=== PATIENT | female | born 2005 | race Caucasian/White ===

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

== ENCOUNTER 2024-07-17 14:27 | Emergency (ER) | payer BC, SELFPAY ==
--- OUTSIDE RECORDS SUMMARY | 2024-07-17 14:32 | XMS_ITS | Encounter Summary ---
Author Organization [facility] Address [address] [place] [address] Care Team Providers Care Comic Artist Name Role Phone Faye Weir MD Unavailable [phone] Kaylie Villanueva MD Primary Care Provider [phone] Faye Weir MD Primary Care Provider [phone] Cordell Paz DO Primary Care Provider Encounter Details Date Type Department Care Team (Late st Contact Info) Description 01/24/2013 [facility] Outpatient Visit [facility] DEFAULT [address] [place] [address] Unknown, Provider Social History Tobacco Use Types Packs/Day Years Used Date Smoking Tobacco: Never Assessed Sex and Gender Information Value Date Recorded Sex Assigned at Not on file Gender Identity Not on file Sexual Orientation Not on file documented as of this encounter Plan of Treatment Not on file documented as of this encounter Visit Diagnoses Not on filedocumented in this encounter Care Teams Comic Artist Relationship Specialty Start Date End Date Faye Weir MD PCP - Pediatrics 04/08/09 Kaylie Villanueva MD [phone] [place] [id number] PCP - General 05/15/10 09/08/13 Faye Weir MD PCP - General Pediatrics 09/09/13 06/21/20 Cordell Paz DO [address] [place] [id number] PCP - General Pediatrics 06/22/20 documented as of this encounter
--- OUTSIDE RECORDS SUMMARY | 2024-07-17 14:32 | XMS_ITS | Encounter Summary ---
Author Organization [facility] Address [address] [place] [address] Care Team Providers Care Equal Opportunity Officer Name Role Phone Faye Weir MD Unavailable [phone] Faye Weir MD Primary Care Provider [phone] Cordell Paz DO Primary Care Provider Encounter Details Date Type Department Care Team (Late st Contact Info) Description 12/12/2015 [facility] Outpatient Visit [facility] - Pediatrics [address] [place] [phone] Faye Weir MD [address] [place] [phone] Social History Tobacco Use Types Packs/Day Years Used Date Smoking Tobacco: Never Sex and Gender Information Value Date Recorded Sex Assigned at Not on file Gender Identity Not on file Sexual Orientation Not on file documented as of this encounter Plan of Treatment Not on file documented as of this encounter Visit Diagnoses Not on filedocumented in this encounter Care Teams Equal Opportunity Officer Relationship Specialty Start Date End Date Faye Weir MD PCP - Pediatrics 04/08/09 Faye Weir MD PCP - General Pediatrics 09/09/13 06/21/20 Cordell Paz DO PCP - General Pediatrics 06/22/20 documented as of this encounter
--- OUTSIDE RECORDS SUMMARY | 2024-07-17 14:32 | XMS_ITS | Referral Summary ---
Author Organization [facility] Address [address] [place] [address] Care Team Providers Care Wastewater Manager Name Role Phone Faye Weir MD Unavailable Cordell Paz DO Primary Care Provider Source Comments [facility],non-owned Affiliates and Associated Physician Practices is amultiple site organization consisting of ambulatory clinics and hospital sitesin [place], [place], [place] and [place]. This disclosure is being madepursuant to the Care Everywhere program and may not contain all information available regarding this patient. Last updated 18.[facility] Allergies No known active allergies Medications * Be aware that medications may not be up to date on this document. Alwaysverify current medications with the patient. Medication Sig Dispensed Refills Start Date End Date Status Spacer/Aero-Holdin g Chambers (AEROCHAMBER) Inhale by mouth as directed 1 Each 02/10/2018 Active Additional Information Patient not taking.Reported on 12/14/2020 clindamycin-benzoy l peroxide (BENZACLIN) 1-5 % gel Apply to affected area 2 times daily After washing face 50 g 1 04/13/2019 Active Additional Information Patient not taking.Reported on 12/14/2020 tretinoin (RETIN-A) 0.01 % gel Apply to affected area at bedtime 45 g 1 04/13/2019 Active Additional Information Patient not taking.Reported on 12/14/2020 albuterol HFA (PROVENTIL;VENTOLI N;PROAIR) 108 (90 Base) MCG/ACT inhaler INHALE 2 (TWO) PUFFS BY MOUTH EVERY 4 HOURS NEEDED FOR WHEEZING OR COUGH 1 Inhaler 07/21/2020 Active Additional Information Patient not taking.Reported on 12/14/2020 adapalene (DIFFERIN) 0.1 % cream Apply to affected area at bedtime 45 g 2 12/14/2020 Active bisacodyl EC (DULCOLAX) 5 MG tablet Take 1 (one) tablet by mouth nightly as needed for Constipation 10 tablet 01/11/2021 Active polyethylene glycol 3350 (MIRALAX) 17 GM/SCOOP powder 1 capful dissolved in 4-8 oz water or juice BID for 3 days and then a capful a day. 527 g 01/11/2021 Active JUNEL FE 06/14 1-20 MG-MCG tablet 03/23/2021 Active naproxen (NAPROSYN) 500 MG tablet Take every 12 hours for 14 days, then up to every 12 hours as needed for migraine 40 tablet 3 03/27/2021 Active ondansetron, disintegrating, (ZOFRAN ODT) 4 MG tablet Take 1 (one) tablet by mouth every 8 hours as needed for Nausea/Vomiting Allow tablet to dissolve on the tongue 20 tablet 3 03/27/2021 Active venlafaxine XR 24hr (EFFEXOR XR) 37.5 MG capsule Take one pill each morning for 1-2 weeks, then increase to two pills each morning 60 capsule 3 03/27/2021 Active Active Problems Problem Noted Date Diagnosed Date Asthma, intermittent 03/31/2012 Strabismic amblyopia 05/15/2010 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 05/15/2010 Resolved Problems Problem Noted Date Diagnosed Date Resolved Date Other closed fractures of di stal end of radius (alone) 09/15/2013 12/29/2018 Family history of other eye disorders 05/15/2010 03/31/2012 Immunizations Name Administration Dates Next Due Open-Plug primary monoval ent 12+ yr 0.3mL Purple cap 11/15/2020 DTAP/IPV 02/05/2010 DTaP VACCINE IM (6wk-6yrs) 10/07/2005,,2004,06/01 HEP A PEDS 2 DOSE 06/22/2020,12/29/2018 HEP B VACCINE, PED/ADOL 03/08/2005,09/14,2004,04/04 HIB BOOSTER 10/07/2005, 5,2004,06/01 Human Papilloma Virus Nineva lent Vaccine 12/14/2020,04/13/2019,12/29/2018 INFLUENZA VACCINE 08/01/2005 MENINGOCOCCAL CONJUGATE (MCV4P) 06/22/2020,12/25 MMR 02/05/2010,07/27/2005 PNEUMOCOCCAL CONJ, PEDS 08/01/2005,03/08,2004,06/01 POLIO IPV 03/08/2005,2004,2004 PPD 08/01/2005 TDAP (7yrs+) 12/26/2015 VARICELLA 02/05/2010,10/07/2005 Social History Tobacco Use Types Packs/Day Years Used Date Smoking Tobacco: Passive Smo ke Exposure - Never Smoker Smokeless Tobacco: Never PHQ-2 Answer Date Recorded PHQ2 TOTAL SCORE 2 12/14/2020 Sex and Gender Information Value Date Recorded Sex Assigned at Not on file Gender Identity Not on file Sexual Orientation Not on file Last Filed Vital Signs Vital Sign Reading Time Taken Comments Blood Pressure 110/70 03/27/2021 1:22 PM CDT Pulse 102 12/14/2020 10:55 AM CDT Temperature 36.6 C (97.8 F) 03/27/2021 11:07 AM CDT Respiratory Rate 15 09/09/2013 8:54 PM CDT Oxygen Saturation 100% 09/09/2013 8:53 PM CDT Inhaled Oxygen Concentration - - Weight 49.8 kg (109 lb 12.6 oz) 03/27/2021 1:22 PM CDT Height 157.9 cm (5' 2.17 ) 03/27/2021 1:22 PM CD T Body Mass Index 19.97 03/27/2021 1:22 PM CDT Plan of Treatment Not on file Goals Goal Patient Goal Type Associated Problems Recent Progress Patient-Stated? Author Use safety retraint in car Lifestyle On track( 021 10:57 AM CDT) No Millicent Johnson, DARLENE Care Teams Wastewater Manager Relationship Specialty Start Date End Date Faye Weir MD PCP - Pediatrics 04/08/09 Cordell Paz DO PCP - General Pediatrics 06/22/20
--- OUTSIDE RECORDS SUMMARY | 2024-07-17 14:32 | XMS_ITS | Clinical Summary ---
Author Organization [facility] Address [address] [place] [address] Care Team Providers Care Upholstery Mechanic Name Role Phone Faye Weir MD Unavailable [phone] Cordell Paz DO Primary Care Provider Source Comments [facility],non-owned Affiliates and Associated Physician Practices is amultiple site organization consisting of ambulatory clinics and hospital sitesin [place], [place], [place] and [place]. This disclosure is being madepursuant to the Care Everywhere program and may not contain all information available regarding this patient. Last updated 18.[facility] [employer] Allergies No known active allergies Medications * [...] 03/31/2012 Immunizations Name Administration Dates Next Due Babytree primary monoval ent 12+ yr 0.3mL Purple cap 11/15/2020 DTAP/IPV 02/05/2010 DTaP VACCINE IM (6wk-6yrs) 10/07/2005,,2004,06/01 HEP A PEDS 2 DOSE 06/22/2020,12/29/2018 HEP B VACCINE, PED/ADOL 03/08/2005,09/14,2004,04/04 HIB BOOSTER 10/07/2005, 5,2004,06/01 Human Papilloma Virus Nineva lent Vaccine 12/14/2020,04/13/2019,12/29/2018 INFLUENZA VACCINE 08/01/2005 MENINGOCOCCAL CONJUGATE (MCV4P) 06/22/2020,12/25 MMR 02/05/2010,07/27/2005 PNEUMOCOCCAL CONJ, PEDS 08/01/2005,03/08,2004,06/01 POLIO IPV 03/08/2005,2004,2004 PPD 08/01/2005 TDAP (7yrs+) 12/26/2015 VARICELLA 02/05/2010,10/07/2005 Family History Medical History Relation Name Comments Strabismus Sister Maeve Half-sister. Gl asses for ET Amblyopia Neg Hx Relation Name Status Comments Sister Maeve Social History Tobacco Use Types Packs/Day Years [...] 03/27/2021 1:22 PM CDT Plan of Treatment Health Maintenance Due Date Last Done Comments PNEUMOCOCCAL VACCINE (1 of 1 - PPSV23) 2010 08/01/2005, 03/08/2005, 2004, Additional history exists HIV SCREENING 2019 CHLAMYDIA/GONORRHEA SCREENING 2020 MENINGOCOCCAL (Group B) VACC INE (1 of 2 - Standard) 2020 HEPATITIS C SCREENING 03/24/2022 COVID-19 VACCINE (2 - 2023-2 5 season) 2024 11/15/2020 INFLUENZA VACCINE (#1) 2024 08/01/2005 DEPRESSION SCREENING 05/26/2024 DTAP/TDAP/TD VACCINES (7 - T d or Tdap) 12/25/2025 12/26/2015, 02/05/2010, 10/07/2005, Additional history exists ZOSTER VACCINE (1 of 2) 2054 HEPATITIS B VACCINE Completed 03/08/2005, 2004, 2004, Additional history exists HIB VACCINE Completed 10/07/2005, 02/23, 2004, Additional history exists MENINGOCOCCAL VACCINE Completed 06/22/2020, 016 HPV VACCINE Completed 12/14/2020, 03/26, 12/29/2018 Goals Goal Patient Goal Type Associated Problems Recent Progress Patient-Stated? Author Use safety retraint in car Lifestyle On track( 021 10:57 AM CDT) Millicent Lujan RN Care Teams Upholstery Mechanic Relationship Specialty Start Date End Date Faye Weir MD PCP - Pediatrics 04/08/09 Cordell Paz DO PCP - General Pediatrics 06/22/20
--- OUTSIDE RECORDS SUMMARY | 2024-07-17 14:32 | XMS_ITS | Patient Health Summary ---
Author Organization [facility] Address [address] 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 This disclosure is being madepursuant to the Care Everywhere program and may not contain all information available regarding this patient. Last updated 18.[facility] Allergies No known active allergies Medications * Be aware that medications may not be up to date on this document. Alwaysverify current medications with the patient. * Spacer/Aero-Holding Chambers (AEROCHAMBER)(Started 02/10/2018) Inhale by mouth as directed * clindamycin-benzoyl peroxide (BENZACLIN) 1-5 % gel(Started 04/13/2019) Apply to affected area 2 times daily After washing face 1 refill remaining * tretinoin (RETIN-A) 0.01 % gel(Started 04/13/2019) Apply to affected area at bedtime 1 refill remaining * albuterol HFA (PROVENTIL;VENTOLIN;PROAIR) 108 (90 Base) MCG/ACT inhaler (Started 07/21/2020) INHALE 2 (TWO) PUFFS BY MOUTH EVERY 4 HOURS NEEDED FOR WHEEZING OR COUGH * adapalene (DIFFERIN) 0.1 % cream(Started 12/14/2020) Apply to affected area at bedtime 2 refills by 12/14/2021 * bisacodyl EC (DULCOLAX) 5 MG tablet(Started 01/11/2021) Take 1 (one) tablet by mouth nightly as needed for Constipation * polyethylene glycol 3350 (MIRALAX) 17 GM/SCOOP powder(Started 01/11/2021) 1 capful dissolved in 4-8 oz water or juice BID for 3 days and then a capful a day. * JUNEL FE 06/14 1-20 MG-MCG tablet(Started 03/23/2021) * naproxen (NAPROSYN) 500 MG tablet(Started 03/27/2021) Take every 12 hours for 14 days, then up to every 12 hours as needed for migraine 3 refills by 03/27/2022 * ondansetron, disintegrating, (ZOFRAN ODT) 4 MG tablet(Started 03/27/2021) Take 1 (one) tablet by mouth every 8 hours as needed for Nausea/Vomiting Allow tablet to dissolve on the tongue 3 refills by 03/27/2022 * venlafaxine XR 24hr (EFFEXOR XR) 37.5 MG capsule(Started 03/27/2021) Take one pill each morning for 1-2 weeks, then increase to two pills each morning 3 refills by 03/27/2022 Active Problems Problem Noted Date Diagnosed Date Asthma, intermittent 03/31/2012 Strabismic amblyopia 05/15/2010 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 05/15/2010 Resolved Problems Problem Noted Date Diagnosed Date Resolved Date Other closed fractures of di stal end of radius (alone) 09/15/2013 12/29/2018 Family history of other eye disorders 05/15/2010 03/31/2012 Immunizations * Covid Pfizer primary monovalent 12+ yr 0.3mL Purple cap(Given 11/15/2020) * DTAP/IPV(Given 02/05/2010) * DTaP VACCINE IM (6wk-6yrs)(Given 10/07/2005, 03/08/2005, 2004, 2004) * HEP A PEDS 2 DOSE(Given 06/22/2020, 12/29/2018) * HEP B VACCINE, PED/ADOL(Given 03/08/2005, 2004, 2004, 2004) * HIB BOOSTER(Given 10/07/2005, 03/08/2005, 2004, 2004) * Human Papilloma Virus Ninevalent Vaccine(Given 12/14/2020, 04/13/2019, 12/29/2018) * INFLUENZA VACCINE(Given 08/01/2005) * MENINGOCOCCAL CONJUGATE (MCV4P)(Given 06/22/2020, 12/26/2015) * MMR(Given 02/05/2010, 07/27/2005) * PNEUMOCOCCAL CONJ, PEDS(Given 08/01/2005, 03/08/2005, 2004, 2004) * POLIO IPV(Given 03/08/2005, 2004, 2004) * PPD(Given 08/01/2005) * TDAP (7yrs+)(Given 12/26/2015) * VARICELLA(Given 02/05/2010, 10/07/2005) Social History Tobacco Use Types Packs/Day Years [...] Mass Index 19.97 03/27/2021 1:22 PM CDT Procedures * US SOFT TISSUE HEAD NECK(Performed 04/10/2021) Performed for Neck mass * KAVIN-COPELAND VIRUS ANTIBODY PANEL(Performed 03/30/2021) Performed for Localized enlarged lymph nodes * C-REACTIVE PROTEIN(Performed 03/30/2021) Performed for Localized enlarged lymph nodes * ERYTHROCYTE SEDIMENTATION RATE(Performed 03/30/2021) Performed for Localized enlarged lymph nodes * VITAMIN D 25-HYDROXY(Performed 03/30/2021) Performed for Migraine without status migrainosus, not intractable, unspecified migraine type * IRON + TIBC + FERRITIN(Performed 03/30/2021) Performed for Migraine without status migrainosus, not intractable, unspecified migraine type * CBC W AUTO DIFFERENTIAL(Performed 03/30/2021) Performed for Localized enlarged lymph nodes, Migraine without status migrainosus, not intractable,unspecified migraine type * T4 FREE(Performed 12/22/2020) Performed for Anxiety, Vomiting, intractability of vomiting not specified, presence of nausea not specified, unspecified vomiting type * TSH(Performed 12/22/2020) Performed for Anxiety, Vomiting, intractability of vomiting not specified, presence of nausea not specified, unspecified vomiting type * CBC W AUTO DIFFERENTIAL(Performed 12/22/2020) Performed for Vomiting, intractability of vomiting not specified, presence of nausea not specified,unspecified vomiting type * COMPREHENSIVE METABOLIC PANEL(Performed 12/22/2020) Performed for Vomiting, intractability of vomiting not specified, presence of nausea not specified,unspecified vomiting type * LIPID PROFILE+GLUCOSE - POINT OF CARE (AMB)(Performed 12/29/2018) Performed for Screening cholesterol level * INFLUENZA A+B - POINT OF CARE (AMB)(Performed 06/20/2016) * URINALYSIS - POINT OF CARE(Performed 01/02/2015) Performed for Urinary frequency * XR FOREARM LEFT 2VW OR MORE(Performed 09/09/2013) Performed for Radius and ulna distal fracture * XR FOREARM LEFT 2VW OR MORE(Performed 09/09/2013) * INFLUENZA A+B - POINT OF CARE (AMB)(Performed 05/04/2012) Performed for Viral illness * CULTURE BLOOD(Performed 04/13/2012) * XR CHEST 2VW(Performed 04/05/2012) * XR CHEST 2VW(Performed 03/31/2012) Performed for Cough * STREP A SCREEN - POINT OF CARE (AMB)(Performed 06/03/2011) Performed for Acute pharyngitis * CULTURE STREP GROUP A(Performed 06/03/2011) Performed for Acute pharyngitis * URINE MICROSCOPIC ONLY(Performed 06/07/2010) Performed for UTI (lower urinary tract infection) * URINALYSIS REFLEX TO MICROSCOPIC NO CULTURE(Performed 06/07/2010) Performed for UTI (lower urinary tract infection) * CULTURE URINE(Performed 06/07/2010) Performed for UTI (lower urinary tract infection) * URINALYSIS - POINT OF CARE(Performed 06/07/2010) Performed for UTI (lower urinary tract infection) Results * US SOFT TISSUE HEAD NECK (04/10/2021) Anatomical Region Laterality Modality Head Ultrasound 04/10/2021 Cordell Paz DO US ORDERABLES * (ABNORMAL) IRON + TIBC + FERRITIN (03/30/2021 1:35 PM CDT) TIBC 423 250 - 450 ug/dL [facility] ACCOUNT BILL UIBC 182 131 - 425 ug/dL [facility] ACCOUNT BILL Iron 241(H) 26 - 169 ug/dL [facility] ACCOUNT BILL Iron Saturation 57(H) 15 - 55 % [facility] ACCOUNT BILL Ferritin 27 15 - 77 ng/mL [facility] ACCOUNT BILL Blood BLOOD SPECIMEN / Unknown 03/30/2021 1:35 PM CDT 03/30/2021 Narrative Resulting Agency Comment Lab Testing performed at: [address] [phone] Cordell Paz DO LAB - CHEMISTRY ORDERABLES [facility] ACCOUNT BILL [address] [place] [address] * C-REACTIVE PROTEIN (CRP) (03/30/2021 1:35 PM CDT) C-Reactive Protein <1 0 - 9 mg/L [facility] ACCOUNT BILL Blood BLOOD SPECIMEN / Unknown 03/30/2021 1:35 PM CDT 03/30/2021 Narrative Resulting Agency Comment Lab Testing performed at: [address] [place] [id number] Cordell Paz DO LAB - CHEMISTRY ORDERABLES [facility] ACCOUNT BILL [address] [place] [address] * KAVIN-COPELAND VIRUS ANTIBODY PANEL (03/30/2021 1:35 PM CDT) Kavin-Copeland Viral Capsid Antigen Antibody IgM <36.0 0.0 - 35.9 U/mL [facility] ACCOUNT BILL Comment: Negative <36.0 Equivocal 36.0 - 43.9 Positive >43.9 Kavin-Copeland Viral Capsid Antigen Antibody IgG <18.0 0.0 - 17.9 U/mL [facility] ACCOUNT BILL Comment: Negative <18.0 Equivocal 18.0 - 21.9 Positive >21.9 Kavin-Copeland Virus Antibody IgG Nuclear Antigen <18.0 0.0 - 17.9 U/mL [facility] ACCOUNT BILL Comment: Negative <18.0 Equivocal 18.0 - 21.9 Positive >21.9 Interpretation Kavin Copeland Virus [facility] ACCOUNT BILL Comment: EBV Interpretation Chart José: Antibody Present + Antibody Absent - Interpretation VCA-IgM VCA-IgG EBNA-IgG . No previous infection/ - - - Susceptible Primary infection (new + + - or recent) Past Infection +or- + + See comment below* + - - *Results indicate infection with EBV at some time however cannot predict the timing of the infection since antibodies to EBNA usually develop after primary infection or, alternatively, approximately 5-10% of patients with EBV never develop antibodies to EBNA. Blood BLOOD SPECIMEN / Unknown 03/30/2021 1:35 PM CDT 03/30/2021 Narrative Resulting Agency Comment Lab Testing performed at: [facility] [place] [address] [phone] Cordell Paz DO LAB - CHEMISTRY ORDERABLES Performing Organization Address City/[facility]/ZIP Co de Phone Number [facility] ACCOUNT BILL [address] [place] [address] * (ABNORMAL) VITAMIN D 25-HYDROXY (03/30/2021 1:35 PM CDT) Vitamin D, 25 Hydroxy 29.6(L) 30.0 - 100.0 ng/mL [facility] ACCOUNT BILL Comment: Vitamin D deficiency has been defined by the [place] [employer] and an Endocrine Society practice guideline as a level of serum 25-OH vitamin D less than 20 ng/mL (1,2). The Endocrine Society went on to further define vitamin D insufficiency as a level between 21 and 29 ng/mL (2). 1. IOM ([place] [employer]). 2010. Dietary reference intakes for calcium and D. [place]: The National Academies Press. 2. Zina MF, Rimma SNYDER, Mabel GARCIA, et al. Evaluation, treatment, and prevention of vitamin D deficiency: an Endocrine Society clinical practice guideline. JCEM. 2010; 96(7):1911-30. Blood BLOOD SPECIMEN / Unknown 03/30/2021 1:35 PM CDT 03/30/2021 Narrative Resulting Agency Comment Lab Testing performed at: [email or web address] [address] [facility] [id number] Cordell Paz DO LAB - CHEMISTRY ORDERABLES Performing Organization Address City/[facility]/ZIP Co de Phone Number [facility] ACCOUNT BILL [address] [place] [address] * SED RATE AUTO (ESR) (03/30/2021 1:35 PM CDT) Erythrocyte Sedimentation Rate Westergren 7 0 - 32 mm/hr [facility] ACCOUNT BILL Blood BLOOD SPECIMEN / Unknown 03/30/2021 1:35 PM CDT 03/30/2021 Narrative Resulting Agency Comment Lab Testing performed at: [facility] [place] [address] [facility] [facility] [phone] Cordell Paz DO LAB - HEMATOLOG Y ORDERABLES Performing Organization Address City/[facility]/ZIP Co de Phone Number [facility] ACCOUNT BILL [address] [place] [address] * CBC WITH DIFFERENTIAL (03/30/2021 1:35 PM CDT) Only the most recent of2 resultswithin the time period is included. WBC 7.9 3.4 - 10.8 x10E3/uL [facility] ACCOUNT BILL RBC 4.47 3.77 - 5.28 x10E6/uL [facility] ACCOUNT BILL Hemoglobin 13.3 11.1 - 15.9 g/dL [facility] ACCOUNT BILL Hematocrit 39.3 34.0 - 46.6 % [facility] ACCOUNT BILL MCV 88 79 - 97 fL [facility] ACCOUNT BILL MCH 29.8 26.6 - 33.0 pg [facility] ACCOUNT BILL MCHC 33.8 31.5 - 35.7 g/dL [facility] ACCOUNT BILL RDW 11.7 11.7 - 15.4 % [facility] ACCOUNT BILL Platelet Count 346 150 - 450 x10E3/uL [facility] ACCOUNT BILL Granulocytes % 67 Not Estab. % [facility] ACCOUNT BILL Lymphocytes % 24 Not Estab. % [facility] ACCOUNT BILL Monocytes % 7 Not Estab. % [facility] ACCOUNT BILL Eosinophils % 1 Not Estab. % [facility] ACCOUNT BILL Basophils % 1 Not Estab. % [facility] ACCOUNT BILL Immature Cells NOT NEEDED [facility] ACCOUNT BILL Comment:Ancillary determined the test is not needed. Granulocytes Absolute 5.3 1.4 - 7.0 x10E3/uL [facility] ACCOUNT BILL Lymphocytes Absolute 1.9 0.7 - 3.1 x10E3/uL [facility] ACCOUNT BILL Monocytes Absolute 0.5 0.1 - 0.9 x10E3/uL [facility] ACCOUNT BILL Eosinophils Absolute 0.1 0.0 - 0.4 x10E3/uL [facility] ACCOUNT BILL Basophils Absolute 0.1 0.0 - 0.3 x10E3/uL [facility] ACCOUNT BILL Immature Granulocytes 0 Not Estab. % [facility] ACCOUNT BILL Immature Granulocytes Absolute 0.0 0.0 - 0.1 x10E3/uL [facility] ACCOUNT BILL nRBC NOT NEEDED [facility] ACCOUNT BILL Comment:Ancillary determined the test is not needed. Comment Hematology NOT NEEDED [facility] ACCOUNT BILL Comment:Ancillary determined the test is not needed. Blood BLOOD SPECIMEN / Unknown 03/30/2021 1:35 PM CDT 03/30/2021 Narrative Resulting Agency Comment Lab Testing performed at: [facility] [id number] Cordell Paz DO LAB - HEMATOLOG Y ORDERABLES [facility] ACCOUNT BILL [address] [place] [address] * COMPREHENSIVE METABOLIC PANEL (12/22/2020 2:25 PM CDT) Pathologist [facility] Glucose 87 65 - 99 mg/dL [facility] INSURANCE BILL BUN 13 5 - 18 mg/dL [facility] INSURANCE BILL Creatinine 0.62 0.57 - 1.00 mg/dL [facility] INSURANCE BILL BUN/Creatinine Ratio 21 10 - 22 [facility] INSURANCE BILL Sodium 140 134 - 144 mmol/L [facility] INSURANCE BILL Potassium 4.5 3.5 - 5.2 mmol/L [facility] INSURANCE BILL Chloride 100 96 - 106 mmol/L [facility] INSURANCE BILL CO2 25 20 - 29 mmol/L [facility] INSURANCE BILL Calcium 9.9 8.9 - 10.4 mg/dL [facility] INSURANCE BILL Protein Total 8.0 6.0 - 8.5 g/dL [facility] INSURANCE BILL Albumin 4.7 3.9 - 5.0 g/dL [facility] INSURANCE BILL Globulin Total 3.3 1.5 - 4.5 g/dL [facility] INSURANCE BILL Albumin/Globulin Ratio 1.4 1.2 - 2.2 [facility] INSURANCE BILL Bilirubin Total 0.2 0.0 - 1.2 mg/dL [facility] INSURANCE BILL Alkaline Phosphatase 84 55 - 121 IU/L [facility] INSURANCE BILL AST 15 0 - 40 IU/L [facility] INSURANCE BILL ALT 19 0 - 24 IU/L [facility] INSURANCE BILL Blood BLOOD SPECIMEN / Unknown 12/22/2020 2:25 PM CDT 12/22/2020 Narrative Resulting Agency Comment [facility]: [facility] [address] [facility] [id number] Cordell Paz DO LAB - CHEMISTRY ORDERABLES [facility] INSURANCE BILL [address] [place] [address] * TSH (12/22/2020 2:25 PM CDT) Pathologist [facility] TSH 1.390 0.450 - 4.500 uIU/mL [facility] INSURANCE BILL Blood BLOOD SPECIMEN / Unknown 12/22/2020 2:25 PM CDT 12/22/2020 Narrative Resulting Agency Comment [facility] Testing performed [facility]: [email or web address] [address] [facility] [phone] Cordell Paz DO LAB - CHEMISTRY ORDERABLES Performing Organization Address City/[facility]/ZIP Co de Phone Number [facility] INSURANCE BILL [address] [place] [address] * T4 FREE (12/22/2020 2:25 PM CDT) [facility] [address] T4 Free 1.14 0.93 - 1.60 ng/dL [facility] INSURANCE BILL Blood BLOOD SPECIMEN / Unknown 12/22/2020 2:25 PM CDT 12/22/2020 Narrative Resulting Agency Comment Lab Testing performed at: [email or web address] [address] [facility] [phone] Cordell Paz DO LAB - CHEMISTRY ORDERABLES Performing Organization Address City/[facility]/ZIP Co de Phone Number [id number] [address] [place] [address] * LIPID PROFILE+GLUCOSE - POINT OF CARE (AMB) (12/29/2018) [facility] [address] QC Verified Yes Yes Cholesterol POCT 169 200 mg/dl HDL POCT 53 mg/dL Triglycerides POCT 91 130 mg/dL LDL 98 130 mg/dl Non HDL Cholesterol POCT 116 145 mg/dL Total Cholesterol/HDL Ratio POCT 3.2 6.0 Glucose 84 70 - 126 mg/dL Blood BLOOD SPECIMEN / Unknown 12/29/2018 Faye Weir MD LAB - POINT OF CARE ORDERABLES * (ABNORMAL) INFLUENZA A+B - POINT OF CARE (AMB) (06/20/2016) Only the most recent of2 resultswithin the time period is included. [facility] [address] Influenza A Antigen Rapid Negative Negative Influenza B Antigen Rapid Positive(A) Negative Influenza Internal Control present NEGATIVE - POSITIVE Influenza Lot Number [id number] Influenza Expiration Date 11/03/17 Other SPECIMEN FROM NASOPHARYNGEAL STRUCTURE / Unknown 06/20/2016 Cordell Paz DO LAB - POINT OF CARE ORDERABLES * URINALYSIS - POINT OF CARE (01/02/2015 2:28 PM CDT) Only the most recent of2 resultswithin the time period is included. Clarity UA POCT clear Color UA POCT yellow Leukocyte UA negative Negative Nitrite UA POCT negative Negative Urobilinogen UA 0.1 - 1.0 Protein UA POCT negative Negative pH UA 5.0 5.0 - 8.0 pH units Blood UA negative Negative Specific [place] UA POCT 1.015 1.002 - 1.030 Ketone UA negative Negative Bilirubin UA POCT negative Negative Glucose UA negative Negative Urine specimen (specimen) URINE / Unknown 01/02/2015 2:28 PM CDT Faye Weir MD LAB - POINT OF CARE ORDERABLES * XR FOREARM 2 VW LEFT (09/09/2013 8:16 PM CDT) Only the most recent of2 resultswithin the time period is included. Anatomical Region Laterality Modality Upper Extremity Radiographic Dede ging 09/10/2013 8:28 AM CDT Impressions 09/10/2013 8:29 AM CDT Casted distal radial fracture Narrative 09/10/2013 8:29 AM CDT EXAMINATION: LEFTXR FOREARM 2 VW LEFT*[id number] dated 09/09/2013. HISTORY: Closed fracture of lower end of radius with ulna. FINDINGS: Casted, AP and lateral views of the left forearm were obtained. Comparison is made to the prior outside examination from [facility] performed on the at 1352. The previously documented distal radial fracture is fixed in near-anatomic alignment. No other imaging abnormality is appreciated. Procedure Note Usman Burton MD - 09/10/2013 EXAMINATION: LEFTXR FOREARM 2 VW LEFT*[id number] dated 09/09/2013. HISTORY: Closed fracture of lower end of radius with ulna. FINDINGS: Casted, AP and lateral views of the left forearm were obtained. Comparison is made to the prior outside examination from [facility] performed on the at 1352. The previously documented distal radial fracture is fixed in near-anatomic alignment. No other imaging abnormality is appreciated. IMPRESSION Casted distal radial fracture Alejandro Christian DO DIAGNOSTIC IMAGI NG ORDERABLES * CULTURE BLOOD (04/13/2012) Blood specimen (specimen) Emergency Physician LAB - MICROBIOLOGY O RDERABLES [facility] ACCOUNT BILL * XR CHEST PA AND LATERAL (04/05/2012) Only the most recent of2 resultswithin the time period is included. Anatomical Region Laterality Modality Chest Other Emergency Physician DIAGNOSTIC IMAGING O RDERABLES * STREP A SCREEN - POINT OF CARE (AMB) (06/03/2011 11:41 AM CUSTOMER SERVICE AGENT) Strep A Rapid POCT negative NEGATIVE - POSITIVE Strep A Internal Control NEGATIVE - POSITIVE ENTIRE THROAT (SURFACE REGION OF NECK) / Unknown Kaylie Villanueva MD LAB - POINT OF CARE ORDERABLES * CULTURE STREP GROUP A (06/03/2011 11:36 AM CUSTOMER SERVICE AGENT) Beta-Strep Culture, Group A Only [facility] ACCOUNT BILL Comment: Beta-hemolytic colonies, not group A Streptococcus isolated. Penicillin and ampicillin are drugs of choice for treatment of beta-hemolytic streptococcal infections. Susceptibility testing of penicillins and other beta-lactam agents approved by the FDA for treatment of beta-hemolytic streptococcal infections need not be performed routinely because nonsusceptible isolates are extremely rare in any beta-hemolytic streptococcus and have not been reported for Streptococcus pyogenes (group A). (CLSI 2011) Miscellaneous samples (specimen) ENTIRE THROAT (SURFACE REGION OF NECK) / Unknown 06/03/2011 11:36 AM CUSTOMER SERVICE AGENT 06/03/2011 9:30 PM CUSTOMER SERVICE AGENT Narrative Resulting Agency Comment [facility] [address] [phone] Kaylie Villanueva MD LAB - MICROBIOLOGY O RDERABLES Performing Organization Address [facility] de Phone Number [facility] ACCOUNT BILL * (ABNORMAL) URINALYSIS ROUTINE AUTO (06/07/2010 11:48 AM CUSTOMER SERVICE AGENT) Specific [place] UA 1.009 1.005 - 1.030 [facility] ACCOUNT BILL pH UA 6.5 5.0 - 7.5 [facility] ACCOUNT BILL Color UA Yellow Yellow [facility] ACCOUNT BILL Appearance Clear Clear [facility] ACCOUNT BILL Leukocyte UA 2+(A) Negative [facility] ACCOUNT BILL Protein UA Negative Negative/Tra ce [facility] ACCOUNT BILL Glucose UA Negative Negative [facility] ACCOUNT BILL Ketone UA Negative Negative [facility] ACCOUNT BILL Occult Blood Urine 1+(A) Negative [facility] ACCOUNT BILL Bilirubin UA Negative Negative [facility] ACCOUNT BILL Urobilinogen 0.2 0.0 - 1.9 mg/dL [facility] ACCOUNT BILL Nitrite UA Negative Negative [facility] ACCOUNT BILL Microscopic Examination Urine See below: [facility] ACCOUNT BILL Microscopic Examination Urine NOT NEEDED [facility] ACCOUNT BILL Comment:Ancillary determined the test is not needed URINE / Unknown 06/07/2010 1 1:48 AM CUSTOMER SERVICE AGENT 06/07/2010 9:49 PM CUSTOMER SERVICE AGENT Narrative Resulting Agency Comment [facility] [address] [phone] Kaylie Villanueva MD LAB - URINALYSIS ORD ERABLES Performing Organization Address [facility] Co de Phone Number [facility] ACCOUNT BILL * (ABNORMAL) URINALYSIS MICROSCOPIC ONLY (06/07/2010 11:48 AM CUSTOMER SERVICE AGENT) WBC UA 11-30(A) 0 - 5 /hpf [facility] ACCOUNT BILL RBC UA 0-3 0 - 3 /hpf [facility] ACCOUNT BILL Epithelial Cells (non renal) 0-10 0 - 10 /hpf [facility] ACCOUNT BILL Epithelial Cells (renal) NOT NEEDED [facility] ACCOUNT BILL Comment:Ancillary determined the test is not needed Casts ua NOT NEEDED [facility] ACCOUNT BILL Comment:Ancillary determined the test is not needed Casts UA NOT NEEDED [facility] ACCOUNT BILL Comment:Ancillary determined the test is not needed Crystals UA NOT NEEDED [facility] ACCOUNT BILL Comment:Ancillary determined the test is not needed Crystals UA NOT NEEDED [facility] ACCOUNT BILL Comment:Ancillary determined the test is not needed Mucus UA Present Not Estab. [facility] ACCOUNT BILL Bacteria UA None seen None seen/Few [facility] ACCOUNT BILL Yeast UA NOT NEEDED [facility] ACCOUNT BILL Comment:Ancillary determined the test is not needed Trichomonas UA NOT NEEDED [facility] ACCOUNT BILL Comment:Ancillary determined the test is not needed Comment Urine NOT NEEDED [facility] ACCOUNT BILL Comment:Ancillary determined the test is not needed URINE / Unknown 06/07/2010 1 1:48 AM CUSTOMER SERVICE AGENT 06/07/2010 9:49 PM CUSTOMER SERVICE AGENT Narrative Resulting Agency Comment [facility] [place] [id number] [facility] [phone] Kaylie Villanueva MD LAB - URINALYSIS ORD ERABLES [facility] ACCOUNT BILL * CULTURE URINE (06/07/2010 11:36 AM CUSTOMER SERVICE AGENT) Urine Culture Routine Final report [facility] ACCOUNT BILL Result 1 No growth [facility] ACCOUNT BILL URINE SPECIMEN OBTAINED BY CLEAN CATCH PROCEDURE / Unknown 06/07/2010 11:36 AM CUSTOMER SERVICE AGENT 06/07/2010 9:38 PM CUSTOMER SERVICE AGENT Narrative Resulting Agency Comment [facility] [place] [id number] [facility] [phone] Kaylie Villanueva MD LAB - MICROBIOLOGY O RDERABLES [facility] ACCOUNT BILL Care Teams Power Cutting Machine Operator Relationship Specialty Start Date End Date Faye Weir MD PCP - Pediatrics 04/08/09 Cordell Paz DO PCP - General Pediatrics 06/22/20
[2024-07-17 14:43] VITALS: BP 115/70; PULSE 95; RESP 16; TEMP 37.1; O2SAT 100
--- NOTE | 2024-07-17 15:48 | ED.GENADULT ---
HPI - General Adult General Chief complaint: Upper Respiratory Infection Stated complaint: fever for 6 days, cough, chills,giovana Source: patient Mode of arrival: ambulatory Limitations: no limitations History of Present Illness HPI narrative: Pt presents for evaluation of sick symptoms. Symptom onset five days ago. Symptoms include fever, sore throat, cough, generalized body aches, nausea and diarrhea. She denies and vomiting or SOB. She reports being exposed to several individuals who have been ill however she is not aware of any specific medical diagnosis applied. She has taken tylenol for her symptoms. She does not smoke. Related Data Allergies Allergy/AdvReac Type Severity Reaction Status Date / Time No Known Allergies Allergy Mild Verified 02/04/24 07:53 Review of Systems Review of Systems: CONSTITUTIONAL: Reports fever and chills EYES: Denies visual changes, redness, or discharge. ENT: Reports sinus congestion and sore throat. CARDIOVASCULAR: Denies chest pain, palpitations, or edema. RESPIRATORY: Reports cough. Denies dyspnea. GASTROINTESTINAL: Reports nausea and diarrhea. Denies abdominal pain and vomiting. GENITOURINARY: Denies dysuria or hematuria. SKIN: Denies rash or itching. MUSCULOSKELETAL: Reports generalized body aches NEUROLOGIC: Denies headache, numbness, dizziness, or weakness. PSYCHIATRIC: Denies anxiety or depression. [facility] Past Medical History Medical History Abnormal vaginal bleeding Recurrent UTI Acne Crying Irritable Difficulty sleeping Migraine Headache Left radial fracture Pneumonia Asthma Surgical History Surgical History History of biopsy (~07/09/21) lymp node biopsy Benign No history of previous surgery Family History Family History Mother Family history non-contributory Hypertension Depression Anxiety Heart disease Father Alcoholism Asthma Depression Anxiety Grandparent Cancer Diabetes mellitus Depression Anxiety Heart disease Social History Social History Smoking status: Never smoker Second hand tobacco smoke exposure: Yes Alcohol intake: never Substance use: never Substance use type: does not use Do You Feel Safe in your Home?: Yes Lack of Transportation: No Lack of Food: Never True Current Housing: I Have Housing Concerned About Future Housing: No Difficulty Paying Gas/Electric Bills: No Difficulty Paying for Meds: No Currently Unemployed: No Education: High School Diploma/GED Difficulty w/ Childcare or Family Care: No Living arrangements: with family Additional living arrangements comments: parents Occupation/Education: occupation Additional occupation/education comments: [employer] Gender identity (if verbalized by the patient): Female Sexual Orientation (if Verbalized by the Patient): Straight or Heterosexual Spiritual care concerns: No Agree to blood products: Yes Exam Narrative: GENERAL: Well-appearing, well-nourished, and in no acute distress. HEAD: Normocephalic, atraumatic. EYES: PERRLA and EOMI. ENT: Nares clear, no rhinorrhea or epistaxis. Mucous membranes moist. Oropharynx without tonsillar hypertrophy exudate or other lesions. Bilateral TMs pearly mortensen nonbulging NECK: Supple. No adenopathy or masses. No carotid bruits or JVD CHEST: Clear to auscultation. No respiratory distress. No wheezes rales or rhonchi HEART: Regular rate and rhythm. No murmur heard. Normal peripheral pulses. ABDOMEN: Soft, nontender, nondistended, normal active bowel sounds. EXTREMITIES: Normal range of motion. No edema. SKIN: Warm, dry, no rash. NEURO: No focal deficits. Alert and oriented x3. PSYCH: Normal mood and affect. Course Course Emergency Course: This is a 19-year-old female who presented for evaluation of sick symptoms. Influenza A positive. We discussed onset of symptoms and while outside range in which medication is typically started, we agreed to start tamiflu. Increase hydration. OTC agents for symptom management. Follow up with primary provider. Go to the ER for worsening symptoms. Pt in agreement with plan of care. Level of Care: Express Care Visit Vital Signs Vital signs: Vital Signs Temperature 37.1 C 07/17/24 14:43 Pulse Rate 95 07/17/24 14:43 Respiratory Rate 16 07/17/24 14:43 Blood Pressure 115/70 07/17/24 14:43 Pulse Oximetry 100 07/17/24 14:43 Oxygen Delivery Room Air 07/17/24 14:43 Temperature 37.1 C 07/17/24 14:43 Pulse Rate 95 07/17/24 14:43 Respiratory Rate 16 07/17/24 14:43 Blood Pressure 115/70 07/17/24 14:43 Pulse Oximetry 100 07/17/24 14:43 Oxygen Delivery Room Air 07/17/24 14:43 Medical Decision Making Vital Signs Vital Signs: Vital Signs Temperature 37.1 C 07/17/24 14:43 Pulse Rate 95 07/17/24 14:43 Respiratory Rate 16 07/17/24 14:43 Blood Pressure 115/70 07/17/24 14:43 Pulse Oximetry 100 07/17/24 14:43 Oxygen Delivery Room Air 07/17/24 14:43 Temperature 37.1 C 07/17/24 14:43 Pulse Rate 95 07/17/24 14:43 Respiratory Rate 16 07/17/24 14:43 Blood Pressure 115/70 07/17/24 14:43 Pulse Oximetry 100 07/17/24 14:43 Oxygen Delivery Room Air 07/17/24 14:43 Discharge Plan Discharge Clinical Impression: Influenza A Patient Disposition: Home, Self-Care Condition: Stable Instructions: Antibiotic Form, Influenza (ED) Patient Language: [place]une[place] Prescriptions: New oseltamivir [Tamiflu] 75 mg capsule 75 mg PO Q12H 5 Days Qty: 10 0RF ondansetron 4 mg tablet,disintegrating 4 mg PO Q8H PRN (Reason: nausea and vomiting) Qty: 15 0RF No Action adapalene 0.1 % cream 1 applic TOPICAL HS Qty: 45 3RF norgestimate-ethinyl estradiol [Sprintec (28)] 0.25-35 mg-mcg tablet 1 tablet PO DAILY Qty: 84 3RF amitriptyline 10 mg tablet 10 mg PO QHS Qty: 90 1RF Follow-up/Referrals: Maricarmen Teran APRN [Primary Care Provider] - Time of Disposition: 15:47
[2024-07-17 15:59] LABS: EDINFLUASCREEN Positive (Negative); EDINFLUBSCREEN Negative (Negative)
== END 2024-07-17 15:53 | disposition home or self-care (01) ==
PROVIDERS: Emergency Provider Nurse Practitioner; PCP Nurse Practitioner Family
DX: J10.1 Influenza due to other identified influenza virus with other respiratory manifestations (principal); J45.909 Unspecified asthma, uncomplicated
CPT/HCPCS: 87804; 99213; G0463